=== PATIENT | male | born 1950 | race Caucasian/White ===

== ENCOUNTER 2016-09-13 13:31 | Emergency (ER) | payer OTHER, MEDICARE, BC ==
[~2016-09-13 13:31] MED LIST: ALLO100T PO; DICY1TAB26 PO; EMPA1TAB7 PO; GLYB1TAB51 PO; LOMO PO; MECL25 PO; METF850T PO; PANT20 PO; POTA1080 PO; PRIN10TA PO; TAMS0.4C67 PO; ZOCO40TA PO
[2016-09-13 13:36] VITALS: BP 142/79; PULSE 94; RESP 16; TEMP 97.9; O2SAT 99
[2016-09-13] MEDS ORDERED: LISI10TA3 PO (13:42)
[2016-09-13] MEDS ORDERED: METF850T PO (13:42)
[2016-09-13] MEDS ORDERED: ZOCO40TA PO (13:42)
[2016-09-13] MEDS ORDERED: GLYB5TAB3 PO (13:42)
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
== END 2016-09-13 15:21 | disposition home or self-care (01) ==
LOC: PHEFT 13:31
DX: S20.211A Contusion of right front wall of thorax, initial encounter (principal); M25.531 Pain in right wrist; V49.40XA Driver injured in collision with unspecified motor vehicles in traffic accident, initial encounter
CPT/HCPCS: 71101; 73110; 94150; 99284; L3908

== ENCOUNTER 2017-02-26 16:15 | Inpatient (IN) | payer MEDICARE, BC ==
[~2017-02-26] VITALS: Ht 177.8 cm; Wt 104.5 kg
[~2017-02-26 16:15] MED LIST changes: -ALLO100T PO; -DICY1TAB26 PO; -EMPA1TAB7 PO; -GLYB1TAB51 PO; +GLYB5TAB3 PO; +LISI10TA3 PO; -LOMO PO; -MECL25 PO; -PANT20 PO; -POTA1080 PO; -PRIN10TA PO; -TAMS0.4C67 PO
[2017-03-09] MEDS ORDERED: TAMS0.4C4 PO (09:51)
[2017-03-09] MEDS ORDERED: PANT20TA2 PO (09:51)
[2017-03-09] MEDS ORDERED: RANI150C PO (10:45)
[2017-03-09] MEDS ORDERED: GLYB5TAB3 PO (10:45)
[2017-03-09] MEDS ORDERED: ALLO100T PO (10:45)
[2017-03-09] MEDS ORDERED: EMPA1TAB5 PO (10:45)
[2017-03-09] MEDS ORDERED: POTA1080 PO (10:45)
[2017-03-09] MEDS ORDERED: METF500T PO (10:45)
[2017-03-09] MEDS ORDERED: LISI2.5T3 PO (10:45)
[2017-03-09] MEDS ORDERED: TRAM50TA PO (10:45)
[2017-03-09] MEDS ORDERED: TYLE325T PO (10:46)
[2017-03-19] MEDS ORDERED: CHLORHEXIDINE GLUCONATE 2 % 1 PACK (2 CLOTHS) TOPICAL PRN (08:15)
[2017-03-19] MEDS ORDERED: CHLORHEXIDINE GLUCONATE 4% SOLN 120 ML BTL TOPICAL SCH (09:00)
[2017-03-19] MEDS ORDERED: SODIUM CHLORID 0.9% 500 ML IV PRN (09:00)
[2017-03-19] MEDS ORDERED: METOPROLOL TARTRATE 25 MG TAB PO PRN (09:00)
[2017-03-19] MEDS ORDERED: POVIDONE IODINE 5% (ANTISEPSIS KIT) 4 APPLICATIONS EACH NARE PRN (09:00)
[2017-03-19] MEDS ORDERED: LACTATED RINGER'S 1000 ML IV PRN (09:00)
[2017-03-19] MEDS ORDERED: INSULIN HUMAN REGULAR 1,000 UNITS/10 ML VIAL SQ PRN (09:00)
[2017-03-19] MEDS ORDERED: EXPAREL PERI-ARTICULAR INJECTION (TOTAL VOL. 100 ML) P-ARTICULR ONE ×2 (09:00)
[2017-03-19] MEDS ORDERED: ceFAZolin 2 GM PREMIX 50 ML IV SCH (09:00)
[2017-03-19] MEDS ORDERED: TRANEXAMIC ACID IV ONE ×2 (09:30→12:30)
[2017-03-19] MEDS ORDERED: SODIUM CHLORIDE 0.9% IV ONE ×2 (09:30→12:30)
[2017-03-19] MEDS ORDERED: Post-op Orders (for Pharmacy) MISC XX ONE (10:00)
[2017-03-19] MEDS ORDERED: SODIUM CHLORIDE 0.9% FLUSH 5 ML FLUSH IVF PRN (10:00)
[2017-03-19] MEDS ORDERED: MAGNESIUM HYDROXIDE SUSP 30 ML CUP PO PRN (10:00)
[2017-03-19] MEDS ORDERED: TRANEXAMIC ACID INJ 0 MG in SODIUM CHLORIDE 0.9% INJ 100 ML IV SCH (10:00)
[2017-03-19] MEDS ORDERED: MORPHINE SULFATE 4 MG/ML INJ IV PUSH PRN (10:00)
[2017-03-19] MEDS ORDERED: PROMETHAZINE INJ 25 MG/ML VIAL IM PRN (10:00)
[2017-03-19] MEDS ORDERED: ACETAMINOPHEN/HYDROcodone 325 MG/7.5 MG TAB PO PRN (10:00)
[2017-03-19] MEDS ORDERED: DEXAMETHASONE SOD PHOS 4 MG/ML VIAL ONE (10:06)
[2017-03-19] MEDS ORDERED: FAMOTIDINE 20 MG/2 ML VIAL ONE (10:06)
[2017-03-19] MEDS ORDERED: MIDAZOLAM HCL 2 MG/2 ML VIAL ONE (10:06)
[2017-03-19] MEDS ORDERED: ACETAMINOPHEN 1000 MG/100 ML VIAL IV ONE (10:11)
[2017-03-19] MEDS ORDERED: fentaNYL CITRATE 250 MCG/5 ML AMP ONE (10:11)
[2017-03-19] MEDS ORDERED: APREPITANT 40 MG CAP ONE (10:12)
[2017-03-19] MEDS ORDERED: GENTAMICIN SULFATE 80 MG/2 ML VIAL ONE (10:13)
[2017-03-19] MEDS ORDERED: LACTATED RINGER'S 1000 ML INJ 1,000 ML IV ONE (12:00)
[2017-03-19] MEDS ORDERED: PHENYLEPH/NS 1000 MCG/10 ML SYR IV ONE (12:00)
[2017-03-19] MEDS ORDERED: PROPOFOL 200 MG/20 ML AMP IV ONE (12:00)
[2017-03-19] MEDS ORDERED: NEOSTIGMINE 3 MG/3 ML SYR IV ONE (12:00)
[2017-03-19] MEDS: LACTATED RINGER'S 1000 ML INJ 1,000 ML IV SCH ×2 (12:05→22:25)
[2017-03-19] MEDS ORDERED: glyBURIDE 5 MG TAB PO PRN (12:45)
--- NOTE | 2017-03-19 12:52 | HHI.FF ---
Face to Face Verification Diagnosis: (1) Status post total left knee replacement Physical Therapy Gait training Knee: Total knee, Protocol: Left, Gait training, Full weight bearing Left LE Weight Bearing: WB as tolerated Left LE Range of Motion: Active ROM Additional Instructions AROM, AAROM, PROM, PRE. ROM goal is 0 to 135 degrees. ROM in the OR was 0 to 145 degrees. Nursing Nursing: Dressing changes Dressing Changes: Daily dressing change, Coverderm/Primapore Additional Instructions Remove steristrips on postop day 14. I have seen patient Brandon Whitfield on 03/19/17. My clinical findings support the need for the requested home health care services because: Ltd mobility - disease progression Limited ability to care for self High risk of falls I certify that my clinical findings support that this patient is homebound because: Post-op weakness Unsteady gait/balance Unsafe to leave home unassisted Tessa Eugene MD (Charles) Mar 19, 2017 12:52
[2017-03-19] MEDS ORDERED: DO NOT ADM ANY ANTICOAGULANT DRUGS PRN (13:11)
--- NOTE | 2017-03-19 14:32 | MP ---
cc: Lilian WAY. DATE OF SURGERY 03/19/2017 PREOPERATIVE DIAGNOSIS Primary osteoarthritis left knee. POSTOPERATIVE DIAGNOSIS Primary osteoarthritis left knee. OPERATION PERFORMED Left total knee arthroplasty with Redway Triathlon prosthesis (uncemented). SURGEON Tessa Way MD ELECTRICAL LINE SPLICER NERI Hugo ANESTHESIA General endotracheal with supplemental adductor canal block and local. INDICATIONS AND FINDINGS This 66-year-old man has had left knee pain for several years. He has had previous arthroscopic surgery in the [place]. More recently he has found that he has had to limit his weightbearing and has had to limit his walk walking to a maximum of one hour with intermittent stops because of the pain. Symptoms included medial and lateral pain, giving-way locking, crepitation and difficulty standing from a seated position and vice versa and difficulty ascending and descending stairs. Treatment has included arthroscopic analgesics, anti-inflammatories, exercise and ambulatory aids. This has not helped him. Imaging studies show severe osteoarthritis with loss of articular cartilage to [id number] and the medial compartment especially with medial and patellofemoral osteophytes, lateral osteophytes and subchondral sclerosis in the medial compartment. Operative findings are consistent with the radiographic findings. There is loss of articular cartilage to exposed subchondral bone in the medial and patellofemoral compartments. PROSTHESIS USED Redway Triathlon prosthesis. The femur was a size 6, right cruciate-retaining Press-Fit. The tibia was a size 6 Tritanium baseplate. The spacer was a size 6 x 9-mm cruciate-retaining of X3 polyethylene. The patella was a Tritanium backed asymmetric patella, size 38. PROCEDURE The patient was brought to the clean-air operating suite and a general endotracheal anesthetic was administered. He was placed in a supine position on the operating table. He received an adductor canal block as well. Prophylactic antibiotics in the form of Ancef was provided at the appropriate time preoperatively according to protocols. Tranexamic acid was also administered. He was placed in a supine position on the operating table with a small bolster under the left hip and a pneumatic tourniquet about the left thigh. Tourniquet was not inflated during the procedure. The left leg was then prepped with alcohol, Hibiclens and Chloraprep and draped in the usual manner with the knee draped free. Appropriate time-out procedure was carried out. Local anesthetic was administered into the incision site prior to making incision. The incision was then made from about three fingerbreadths above the superior and medial pole of the patella down to the tibial tubercle. The incision was deepened through subcutaneous tissues to the retinacular structures which were exposed medially and laterally. A medial retinacular incision was made from the superior medial pole of patella down to the tibial tubercle and up into the quadriceps tendon splitting it longitudinally in the medial one-third. The patella was reflected. Medial and lateral dissection was carried out. The posterior surface of the patella was excised with the oscillating saw taking care to prevent injury to the extensor mechanism. The fenestration were made in the distal femur and proximal tibia for intermedullary referencing guides. Distal femoral cutting block was positioned in place with the jig for a 5-degree, 8-mm cut. Cutting block was stabilized with pins. The jig was removed. The distal femoral cut was completed with the oscillating saw. The sizing guide was positioned along Whitesides line in the epicondylar axis. This was stabilized with pins. The size was determined to be a size 6. The four-in-one cutting block was positioned in place and stabilized with pins. Anterior and posterior cuts were made followed by posterior and anterior chamfer cuts. Osteophytes were trimmed from the femur. Medial and lateral meniscectomies were completed. The tibial cutting guide was then positioned in place and stabilized with pins for rotation followed by verifying depth of cut with the stylus and stabilized with pins. This was then adjusted accordingly. The proximal tibial cut was completed with the oscillating saw. After completion of the tibial cut, the spacer block verified appropriate depth of cut. The tibial trial was appropriate for a size 6. The 9-mm spacer was inserted. The femoral component was inserted. With a trial prosthesis in place, the tibial component was stabilized with pins. The alignment was checked and appeared to be excellent. The patella drill holes were then made through the patella drill guide. A size 38 trial patella was positioned in place. The knee was taken through a range of motion which was easily 0 degrees extension and 145 degrees of flexion with excellent stability throughout the entire range of motion. Femoral drill holes were made. The trial patella and femur were removed. The tibial spacer was removed. The tibial punch was impacted after placement of bone grafts into fenestrations. The drill guide was positioned in place and drill holes made. After removal of the trial prosthesis, Exparel was injected throughout the knee. The tibial baseplate was then impacted into place and seated appropriately. At 9-mm spacer was inserted. The femoral component was impacted into the cleaned distal femur after irrigating with pulse lavage. When this was seated, the patella prosthesis was seated onto the posterior surface of the patella using the patella vice. Drains were brought out the superior and lateral aspects of the suprapatellar pouch. The remainder of the Exparel was injected throughout the knee. The wound was then closed with 0 Vicryl interrupted [id number] sutures for the retinacular and capsular structures, 2-0 Vicryl interrupted simple sutures with buried knots, with the subcutaneous tissues and 4-0 Monocryl continuous subcuticular closure for the skin. The wound was dressed with Steri-Strips followed by dry dressing. Sterile Sof-Rol, cooling pad, further sterile Sof-Rol and Guy bandages from the base of toe to midthigh. The patient was transferred to the recovery room in satisfactory condition having tolerated the procedure well. COUNTS Correct. SPECIMENS None. ESTIMATED BLOOD LOSS 300 mL. MD VALENCIA Rios/BHARAT /12:59 PM /2:05 PM
[2017-03-19] MEDS: KETOROLAC TROMETHAMINE 30 MG/ML (IVP) VIAL IVP SCH ×2 (15:00→21:33)
--- NOTE | 2017-03-19 15:25 | RADRPT ---
EXAM DATE/TIME: 03/19/2017 14:48 [facility] COMPARISON: No previous studies available for comparison. INDICATIONS : Post op left knee MEDICAL HISTORY : None. SURGICAL HISTORY : None. ENCOUNTER: Initial ACUITY: 1 day PAIN SCORE: 5/10 LOCATION: Left knee FINDINGS: Two view examination of the left knee demonstrates no evidence of fracture or dislocation. Left knee arthroplasty. Surgical drain in place. Postsurgical changes. CONCLUSION: Left knee arthroplasty. Juan Chowdhury MD on March 19, 2017 at 15:21 Board Certified Radiologist. This report was verified electronically.
[2017-03-19] MEDS ORDERED: *morphine SULFATE 8 MG/ML PERIprocedure ONLY ONE (15:47)
--- NOTE | 2017-03-19 15:52 | PD.CONS ---
HPI Service [facility] Consult Requested By Primary Care Physician Olamide Luna MD Diagnoses: History of Present Illness Mr. Whitfield is a 66-year-old male. He is admitted for left total knee arthroplasty. He is seen postop and is lethargic. Of note he is tachycardic. Latest hemoglobin level was greater than 14 and was obtained proximally 10 days ago. Patient has a past medical history of diabetes mellitus type 2, chronic kidney disease, hypertension, hyperlipidemia, near goal bowel syndrome. She has no complaints of nausea or pain when seen. No other medical conditions reported. Review of Systems Constitutional: DENIES: Fatigue, Fever, Dizziness Eyes: DENIES: Blurred vision, Diplopia, Vision loss Ears, nose, mouth, throat: DENIES: Hearing loss, Vertigo Respiratory: DENIES: Cough, Hemoptysis, Sputum production, Shortness of breath Cardiovascular: DENIES: Chest pain, Syncope, Orthopnea Gastrointestinal: DENIES: Abdominal pain, Black stools, Bloody stools Genitourinary: DENIES: Sexual dysfunction, Urinary frequency Musculoskeletal: COMPLAINS OF: Joint pain Integumentary: DENIES: Abnormal pigmentation, Nail changes Hematologic/lymphatic: DENIES: Bruising Immunologic/allergic: DENIES: Eczema Neurologic: DENIES: Abnormal gait, Headache, Seizures Psychiatric: DENIES: Anxiety, Confusion Past Family Social History Allergies: Coded Allergies: ondansetron (Unverified Allergy, Severe, Hives, 03/13/17) ciprofloxacin (Unverified Allergy, Intermediate, Nausea/Vomiting, 03/13/17) Past Medical History Diabetes mellitus type 2 Chronic kidney disease stage III Hypertension Hyperlipidemia Irritable bowel syndrome Past Surgical History Tonsillectomy Appendectomy History of shoulder surgery History bilateral knee surgery Reported Medications Reported Meds & Active Scripts Active Reported Tylenol (Acetaminophen) 325 Mg Tab 325 Mg PO Q4H PRN Tramadol (Tramadol HCl) 50 Mg Tab 50 Mg PO Q4H PRN Lisinopril 2.5 Mg Tab 2.5 Mg PO HS Glyburide 5 Mg Tab 5 Mg PO DIRECTED PRN IF BS ELEVATED TAKES DOSE AT SUPPER AND BEDTIME Ranitidine (Ranitidine HCl) 150 Mg Cap 150 Mg PO DAILY AT SUPPER Metformin (Metformin HCl) 500 Mg Tab 500 Mg PO BID With meals Allopurinol 100 Mg Tab 100 Mg PO DAILY Glyxambi (Empagliflozin-Linagliptin) 25-5 Mg Tab 1 Tab PO DAILY Potassium Citrate ER 1,080 Mg Tab 1 Tab PO BID Tamsulosin (Tamsulosin HCl) 0.4 Mg Cap 0.4 Mg PO BID Pantoprazole (Pantoprazole Sodium) 20 Mg Tab 20 Mg PO DAILY Zocor (Simvastatin) 40 Mg Tab 40 Mg PO DAILY Active Ordered Medications Administered Medications Medications (Trade) Dose Ordered Sig/Kiki Route PRN Reason Start Time Stop Time Status Last Admin Dose Admin Lactated Ringer's 1,000 ml @ 30 mls/hr Q24H PRN IV SEE LABEL COMMENTS 03/19/17 09:00 03/22/17 08:59 03/19/17 08:25 Povidone Iodine (Betadine 5% Antisepsis Kit) 1 applic PHYSICIAN ASSISTANT PSYCHIATRY PRN EACH NARE SEE LABEL COMMENTS 03/19/17 09:00 03/22/17 08:59 03/19/17 08:30 Cefazolin Sodium/ Dextrose 50 ml @ 100 mls/hr PHYSICIAN ASSISTANT PSYCHIATRY IV 03/19/17 09:00 03/22/17 08:59 03/19/17 10:41 Lactated Ringer's 1,000 ml @ 80 mls/hr [id number] IV 03/19/17 09:55 03/19/17 12:05 Family History Diabetes mellitus type 2 and history of lung cancer in his father. Patient cannot recall any positive medical history in his mother. Social History No history of smoking No history of alcohol abuse No history of drug abuse Physical Exam Vital Signs Vital Signs Date Time Temp Pulse Resp B/P (MAP) Pulse Ox O2 Delivery O2 Flow Rate FiO2 03/19/17 08:37 98.1 102 20 148/84 (105) 99 Physical Exam GENERAL: This is a well-nourished, well-developed patient, in no apparent distress. SKIN: No rashes, ecchymoses or lesions. Cool and dry. HEAD: Atraumatic. Normocephalic. No temporal or scalp tenderness. EYES: Pupils equal round and reactive. Extraocular motions intact. No scleral icterus. No injection or drainage. ENT: Nose without bleeding, purulent drainage or septal hematoma. Throat without erythema, tonsillar hypertrophy or exudate. Uvula midline. Airway patent. NECK: Trachea midline. No JVD or lymphadenopathy. Supple, nontender, no meningeal signs. CARDIOVASCULAR: Regular rate and rhythm without murmurs, gallops, or rubs. RESPIRATORY: Clear to auscultation. Breath sounds equal bilaterally. No wheezes , rales, or rhonchi. GASTROINTESTINAL: Abdomen soft, non-tender, nondistended. No hepato-splenomegaly , or palpable masses. No guarding. MUSCULOSKELETAL: Extremities without clubbing, cyanosis, or edema. No joint tenderness, effusion, or edema noted. No calf tenderness. Negative Homans sign bilaterally. NEUROLOGICAL: Awake and alert. Cranial nerves II through XII intact. Motor and sensory grossly within normal limits. Five out of 5 muscle strength in all muscle groups. Normal speech. Assessment and Plan Problem List: (1) Diabetes mellitus type 2 in nonobese ICD Code: E11.9 - Type 2 diabetes mellitus without complications (2) Chronic kidney disease, stage III (moderate) ICD Code: N18.3 - Chronic kidney disease, stage 3 (moderate) (3) Hypertension ICD Code: I10 - Essential (primary) hypertension (4) Hyperlipidemia ICD Code: E78.5 - Hyperlipidemia, unspecified (5) Irritable bowel syndrome ICD Code: K58.9 - Irritable bowel syndrome without diarrhea (6) Primary osteoarthritis of left knee ICD Code: M17.12 - Unilateral primary osteoarthritis, left knee (7) Status post total left knee replacement ICD Code: Z96.652 - Presence of left artificial knee joint Assessment and Plan Assessment and plan 66-year-old male status post left total knee arthroplasty. Status post left total knee arthroplasty Osteoarthritis Postop wound care Plan to start PT Orthopedic surgeons following As needed pain treatments Tachycardia Check H&H Follow on telemetry Diabetes mellitus type 2 Follow blood sugars Insulin sliding scale Diabetic diet Chronic kidney disease stage III Follow renal function Hypertension No need to resume blood pressure medicines yet Monitor blood pressures Resume baseline treatments when hypertension occurs Hyperlipidemia Resume baseline treatment Follows in outpatient Irritable bowel syndrome No exacerbation Follow clinically DVT Prophylaxis Per orthopedic recommendations Salas Ruiz MD Mar 19, 2017 15:52
[2017-03-19] MEDS ORDERED: DEXTROSE 50% IN WATER 50 ML VIAL(D50) IV PRN (16:00)
[2017-03-19] MEDS ORDERED: GLUCAGON 1 MG/ML VIAL OTHER PRN (16:00)
[2017-03-19 16:29] LABS: HEMATOCRIT 40.5 % (39.0-51.0); REVIEW FLAG FINAL
[2017-03-19] MEDS ORDERED: FAMOTIDINE 20 MG TAB PO SCH (18:00)
[2017-03-19 20:50] VITALS: BP 111/57; PULSE 108; RESP 18; TEMP 96.6; O2SAT 97
[2017-03-19] MEDS ORDERED: ZOLPIDEM TARTRATE 5 MG TAB PO PRN (21:00)
[2017-03-19] MEDS ORDERED: PILL SPLITTER OTHER PRN (21:00)
[2017-03-19] MEDS: SODIUM CHLORIDE 0.9% FLUSH 5 ML FLUSH IVF SCH (21:00)
[2017-03-19] MEDS ORDERED: LISINOPRIL 5 MG TAB PO SCH (21:00)
[2017-03-19] MEDS ORDERED: POTASSIUM CITRATE PO SCH (21:00)
[2017-03-19] MEDS: TAMSULOSIN HCL 0.4 MG CAP PO SCH (21:33)
[2017-03-19] MEDS: metFORMIN HCL 500 MG TAB PO SCH (23:12)
[2017-03-19] MEDS ORDERED: INSULIN ASPART 1,000 UNITS/10 ML VIAL SQ ONE (23:15)
[2017-03-20 00:34] VITALS: BP 115/65; PULSE 110; RESP 18; TEMP 97.6; O2SAT 98
[2017-03-20 04:50] VITALS: BP 116/65; PULSE 103; RESP 18; TEMP 98; O2SAT 100
[2017-03-20] MEDS: KETOROLAC TROMETHAMINE 30 MG/ML (IVP) VIAL IVP SCH ×3 (05:51→13:13)
[2017-03-20] MEDS: ACETAMINOPHEN/HYDROcodone 325 MG/7.5 MG TAB PO PRN ×2 (06:05→15:58)
[2017-03-20 07:44] LABS: HEMATOCRIT 35.3 % (39.0-51.0); REVIEW FLAG FINAL
--- NOTE | 2017-03-20 07:55 | PD.ORT.PN ---
Subjective Post Op Day #: 1 Subjective Remarks He was unable to walk yesterday because he did not eat. He feels ready to walk and do PT today. Range of Motion -15 to 82 degrees. Distance Walked Stood only with PT. Objective Vitals Vital Signs Date Time Temp Pulse Resp B/P (MAP) Pulse Ox O2 Delivery O2 Flow Rate FiO2 03/20/17 04:50 98.0 103 18 116/65 (82) 100 03/20/17 00:34 97.6 110 18 115/65 (82) 98 03/19/17 20:50 96.6 108 18 111/57 (75) 97 03/19/17 19:45 110 14 141/69 (93) 97 Nasal Cannula 2 03/19/17 19:38 2 Nasal Cannula 03/19/17 19:30 110 14 149/67 (94) 97 Nasal Cannula 2 03/19/17 18:30 111 14 150/71 (97) 94 Nasal Cannula 2 03/19/17 17:30 113 14 125/71 (89) 95 Nasal Cannula 2 03/19/17 16:30 115 14 127/70 (89) 96 Nasal Cannula 2 03/19/17 15:30 115 14 120/62 (81) 96 Nasal Cannula 2 03/19/17 14:30 109 14 132/71 (91) 96 Nasal Cannula 2 03/19/17 14:15 112 14 139/69 (92) 96 Nasal Cannula 2 03/19/17 14:00 109 14 139/62 (87) 96 Nasal Cannula 2 03/19/17 13:45 108 14 149/72 (97) 99 Nasal Cannula 2 03/19/17 13:30 103 14 134/63 (86) 95 Nasal Cannula 2 03/19/17 13:15 97.4 97 14 133/68 (89) 97 Simple Mask 8 03/19/17 08:37 98.1 102 20 148/84 (105) 99 I/O 03/19/17 03/19/17 03/19/17 03/20/17 03/20/17 03/20/17 07:00 15:00 23:00 07:00 15:00 23:00 Intake Total 1457 ml 790 ml 1710 ml Output Total 3250 ml 1705 ml 660 ml Balance -1793 ml -915 ml 1050 ml Intake Oral 240 ml 240 ml IV Total 1357 ml 550 ml 1470 ml Other 100 ml Output Urine Total 1475 ml 600 ml Drainage Total 230 ml 60 ml Estimated Blood Loss 250 ml Other 3000 ml # Bowel Movements 0 0 Result Diagram: 03/20/17 0730 Imaging X-ray is OK. Objective Remarks He is resting comfortably, supine in bed in the CPM. The dressing is dry and intact. The neurovascular status is intact. Assessment & Plan Ortho Post Op Day #: 1 Problem List: (1) Status post total left knee replacement ICD Codes: Z96.652 - Presence of left artificial knee joint Status: Acute Plan: Continue postop care and PT. Assessment and Plan Condition: Good. Orthopaedically stable. DVT prophylaxis: TEDs, ASA, sequentials. Discharge plans: Home with [facility]. Has appointment. Rx: [place] 7.5/325 Tessa Eugene MD (Charles) Mar 20, 2017 07:55
[2017-03-20 08:00] VITALS: BP 101/64; PULSE 96; RESP 20; TEMP 98.2; O2SAT 98
[2017-03-20] MEDS ORDERED: HYDR-3580 PO (08:28)
[2017-03-20] MEDS ORDERED: ASPI-99 PO (08:28)
[2017-03-20] MEDS: metFORMIN HCL 500 MG TAB PO SCH (08:52)
[2017-03-20] MEDS: TAMSULOSIN HCL 0.4 MG CAP PO SCH (08:52)
[2017-03-20] MEDS: SODIUM CHLORIDE 0.9% FLUSH 5 ML FLUSH IVF SCH (08:53)
[2017-03-20] MEDS ORDERED: PRAVASTATIN SOD 80 MG TAB PO SCH (09:00)
[2017-03-20] MEDS ORDERED: LINAGLIPTIN PO SCH (09:00)
[2017-03-20] MEDS ORDERED: ALLOPURINOL 100 MG TAB PO SCH (09:00)
[2017-03-20] MEDS ORDERED: PANTOPRAZOLE SOD 20 MG DELAYED RELEASE TAB PO SCH (09:00)
[2017-03-20] MEDS ORDERED: EMPAGLIFLOZIN PO SCH (09:00)
--- NOTE | 2017-03-20 10:13 | HHI.PR ---
Subjective Remarks Doing well postop. No further tachycardia. Hemoglobin is 11.6 which is stable postop. Patient is medically stable for discharge when orthopedic clears patient for discharge. Objective Vital Signs Date Time Temp Pulse Resp B/P (MAP) Pulse Ox O2 Delivery O2 Flow Rate FiO2 03/20/17 08:00 98.2 96 20 101/64 (76) 98 03/20/17 07:10 16 03/20/17 07:10 16 03/20/17 04:50 98.0 103 18 116/65 (82) 100 03/20/17 00:34 97.6 110 18 115/65 (82) 98 03/19/17 20:50 96.6 108 18 111/57 (75) 97 03/19/17 19:45 110 14 141/69 (93) 97 Nasal Cannula 2 03/19/17 19:38 2 Nasal Cannula 03/19/17 19:30 110 14 149/67 (94) 97 Nasal Cannula 2 03/19/17 18:30 111 14 150/71 (97) 94 Nasal Cannula 2 03/19/17 17:30 113 14 125/71 (89) 95 Nasal Cannula 2 03/19/17 16:30 115 14 127/70 (89) 96 Nasal Cannula 2 03/19/17 15:30 115 14 120/62 (81) 96 Nasal Cannula 2 03/19/17 14:30 109 14 132/71 (91) 96 Nasal Cannula 2 03/19/17 14:15 112 14 139/69 (92) 96 Nasal Cannula 2 03/19/17 14:00 109 14 139/62 (87) 96 Nasal Cannula 2 03/19/17 13:45 108 14 149/72 (97) 99 Nasal Cannula 2 03/19/17 13:30 103 14 134/63 (86) 95 Nasal Cannula 2 03/19/17 13:15 97.4 97 14 133/68 (89) 97 Simple Mask 8 I/O 03/19/17 03/19/17 03/19/17 03/20/17 03/20/17 03/20/17 07:00 15:00 23:00 07:00 15:00 23:00 Intake Total 1457 ml 790 ml 1710 ml Output Total 3250 ml 1705 ml 660 ml Balance -1793 ml -915 ml 1050 ml Intake Oral 240 ml 240 ml IV Total 1357 ml 550 ml 1470 ml Other 100 ml Output Urine Total 1475 ml 600 ml Drainage Total 230 ml 60 ml Estimated Blood Loss 250 ml Other 3000 ml # Bowel Movements 0 0 Result Diagram: 03/20/17 0730 Objective Remarks GENERAL: NAD, A&Ox3 HEAD: Normocephalic. NECK: Supple, trachea midline. No lymphadenopathy. EYES: No scleral icterus. No injection or drainage. CARDIOVASCULAR: Regular rate and rhythm without murmurs, gallops, or rubs. RESPIRATORY: Breath sounds equal bilaterally. No accessory muscle use. GASTROINTESTINAL: Abdomen soft, non-tender, nondistended. MUSCULOSKELETAL: No cyanosis, or edema. Left leg bandage. SKIN: Warm and dry. NEURO: No focal neurological deficitis. A/P Problem List: (1) Primary osteoarthritis of left knee ICD Code: M17.12 - Unilateral primary osteoarthritis, left knee (2) Status post total left knee replacement ICD Code: Z96.652 - Presence of left artificial knee joint Status: Acute Assessment and Plan Assessment and plan 66-year-old male status post left total knee arthroplasty. Medically stable for discharge to home when orthopedic surgeons clear patient for discharge. Status post left total knee arthroplasty Osteoarthritis Doing well postop No significant postop anemia Postop wound care Continue PT Orthopedic surgeon follow up as an outpatient As needed pain treatments Medically stable for discharge Tachycardia Resolved Diabetes mellitus type 2 Resume baseline outpatient treatment Follow blood sugars Insulin sliding scale Diabetic diet Chronic kidney disease stage III Follow renal function as an outpatient Hypertension Resume baseline treatments Currently controlled Hyperlipidemia Resume baseline treatment Follows in outpatient Irritable bowel syndrome No exacerbation DVT Prophylaxis Per orthopedic recommendations Salas Ruiz MD Mar 20, 2017 10:13
[2017-03-20] MEDS: LACTATED RINGER'S 1000 ML INJ 1,000 ML IV SCH (10:55)
[2017-03-20 10:59] VITALS: O2SAT 96
[2017-03-20 11:00] VITALS: BP 122/61; PULSE 93; RESP 20; TEMP 95.8; O2SAT 93
[2017-03-20] MEDS ORDERED: ASPIRIN EC 81 MG TABEC PO SCH (12:00)
[2017-03-20 16:35] VITALS: BP 128/71; PULSE 108; RESP 20; TEMP 96.2; O2SAT 97
[2017-03-20] MEDS ORDERED: DOCUSATE SODIUM 100 MG CAP PO SCH (21:00)
== END 2017-03-20 17:14 | disposition home health service (06) | DRG 470 ==
LOC: HSDI 03-19 07:35 → N06B 03-19 20:09
PROVIDERS: ADMIT Orthopaedic Surgery; ATTEND Orthopaedic Surgery
PROC: 3E0T3CZ (ICD-10-PCS; 2017-03-19)
PROC: 0SRD0JA Replacement of Left Knee Joint with Synthetic Substitute, Uncemented, Open Approach (ICD-10-PCS; principal; 2017-03-19 10:17)
DX: M17.12 Unilateral primary osteoarthritis, left knee (principal); E11.22 Type 2 diabetes mellitus with diabetic chronic kidney disease; N18.3 Chronic kidney disease, stage 3 (moderate); R00.0 Tachycardia, unspecified; I12.9 Hypertensive chronic kidney disease with stage 1 through stage 4 chronic kidney disease, or unspecified chronic kidney disease; E78.5 Hyperlipidemia, unspecified; K58.9 Irritable bowel syndrome, unspecified
CPT/HCPCS: 73560; 82948; 85014; 85018; 86850; 86900; 86901; 94150; C1776; C9290; J0131; J0690; J1100; J1580; J1815; J1885; J2250; J2270; J2370; J2710; J3010; J7120; J8501

== ENCOUNTER → 2017-03-09 | Outpatient (CLI) | payer MEDICARE, BC ==
[~2017-03-09] MED LIST changes: +ALLO100T PO; +ASPI-99 PO; +EMPA1TAB5 PO; +HYDR-3580 PO; +LISI2.5T3 PO; +METF500T PO; +PANT20TA2 PO; +POTA1080 PO; +RANI150C PO; +TAMS0.4C4 PO; +TRAM50TA PO; +TYLE325T PO
[2017-03-09 09:32] LABS: AUTOMATED NEUTROPHIL # 3.1 TH/MM3 (1.8-7.7); BASOPHIL % 0.7 % (0.0-2.0); EOSINOPHIL # 0.3 TH/MM3 (0-0.4); HEMATOCRIT 43.8 % (39.0-51.0); HEMO FLAGS DIFF FINAL; LYMPH % 36.4 % (9.0-44.0); LYMPHOCYTE # 2.2 TH/MM3 (1.0-4.8); MEAN CELL VOLUME 89.7 FL (80.0-100.0); MEAN CORPUSCULAR HEMOGLOBIN 29.9 PG (27.0-34.0); MEAN CORPUSCULAR HGB CONC 33.4 % (32.0-36.0); NEUT % 49.9 % (16.0-70.0); PLATELET COUNT 227 TH/MM3 (150-450); RED BLOOD COUNT 4.89 MIL/MM3 (4.50-5.90); RED CELL DISTRIBUTION WIDTH 14.9 % (11.6-17.2); WHITE BLOOD COUNT 6.1 TH/MM3 (4.0-11.0)
[2017-03-09 09:40] LABS: APTT (PATIENT) 25.7 SEC (24.3-30.1); PROTHROMBIN TIME - PATIENT 10.5 SEC (9.8-11.6)
[2017-03-09 09:55] LABS: BICARBONATE 26.4 MEQ/L (21.0-32.0); POTASSIUM 4.4 MEQ/L (3.5-5.1)
[2017-03-09 10:36] LABS: BLOOD, URINE NEG (NEG); COMMENT (UR) CULT NOT INDICATED; CULTURE IF INDICATED CULT NOT INDICATED; GLUCOSE,URINE 1000 mg/dL (NEG); HYALINE CAST, URINE 2 /lpf (RARE); KETONE, URINE NEG (NEG); MUCUS URINE FEW /lpf (OCC); NITRITE,URINE NEG (NEG); URINE COLOR YELLOW (YELLW/STRAW)
--- NOTE | 2017-03-09 17:23 | EKG ---
Date Performed: 03/09/2017 Time Performed: 09:11:28 PTAGE: 66 years EKG: Sinus rhythm WITH SINUS ARRHYTHMIA BORDERLINE LEFT AXIS DEVIATION When compared to previous tracing, sinus arrhyt hmia is new. BORDERLINE ECG PREVIOUS TRACING : 03/06/2016 06.10 DOCTOR: Henry Willingham Interpretating Date/Time 03/09/2017 17:21:40
== END ==
LOC: CPRE 08:52
PROVIDERS: ATTEND Orthopaedic Surgery
DX: Z01.812 Encounter for preprocedural laboratory examination (principal); Z01.810 Encounter for preprocedural cardiovascular examination; M79.609 Pain in unspecified limb; I10 Essential (primary) hypertension; I49.8 Other specified cardiac arrhythmias
CPT/HCPCS: 36415; 80048; 81001; 85025; 85610; 85730; 93005

== ENCOUNTER → 2017-07-13 | Outpatient (CLI) | payer MEDICARE, BC ==
[~2017-07-13] MED LIST changes: -ASPI-99 PO; +ASPI1TAB56 PO; -LISI10TA3 PO; -METF850T PO; +PROM25TA10 PO; +ULOR40TA PO
[2017-07-13 09:36] LABS: HEMATOCRIT 40.9 % (39.0-51.0); MEAN CELL VOLUME 79.2 FL (80.0-100.0); MEAN CORPUSCULAR HEMOGLOBIN 25.8 PG (27.0-34.0); MEAN CORPUSCULAR HGB CONC 32.6 % (32.0-36.0); PLATELET COUNT 256 TH/MM3 (150-450); RED BLOOD COUNT 5.16 MIL/MM3 (4.50-5.90); RED CELL DISTRIBUTION WIDTH 16.4 % (11.6-17.2); REVIEW FLAG FINAL; WHITE BLOOD COUNT 5.9 TH/MM3 (4.0-11.0)
[2017-07-13 09:41] LABS: BLOOD, URINE NEG (NEG); COMMENT (UR) CULT NOT INDICATED; CULTURE IF INDICATED CULT NOT INDICATED; GLUCOSE,URINE 1000 mg/dL (NEG); KETONE, URINE NEG (NEG); MUCUS URINE FEW /lpf (OCC); NITRITE,URINE NEG (NEG); PH, URINE 6.5 (5.0-8.5); URINE COLOR LIGHT-YELLOW (YELLW/STRAW)
[2017-07-13 09:44] LABS: APTT (PATIENT) 24.3 SEC (24.3-30.1)
[2017-07-13 09:59] LABS: BICARBONATE 25.4 MEQ/L (21.0-32.0); POTASSIUM 4.5 MEQ/L (3.5-5.1)
== END ==
LOC: CPRE 08:44
PROVIDERS: ATTEND Orthopaedic Surgery
DX: Z01.812 Encounter for preprocedural laboratory examination (principal); M79.609 Pain in unspecified limb; M17.11 Unilateral primary osteoarthritis, right knee; I10 Essential (primary) hypertension; T84.82XD Fibrosis due to internal orthopedic prosthetic devices, implants and grafts, subsequent encounter
CPT/HCPCS: 36415; 80048; 81001; 85027; 85610; 85730

== ENCOUNTER 2017-08-06 07:35 | Inpatient (IN) | payer MEDICARE, BC ==
[~2017-08-06] VITALS: Ht 177.8 cm; Wt 79.1 kg
[~2017-08-06 07:35] MED LIST changes: -ALLO100T PO; -ASPI1TAB56 PO
[2017-08-06] MEDS ORDERED: LACTATED RINGER'S 1000 ML IV PRN (08:15)
[2017-08-06] MEDS ORDERED: CHLORHEXIDINE GLUCONATE 4% SOLN 120 ML BTL TOPICAL SCH (08:15)
[2017-08-06] MEDS ORDERED: POVIDONE IODINE 5% (ANTISEPSIS KIT) 4 APPLICATIONS EACH NARE PRN (08:15)
[2017-08-06] MEDS ORDERED: CHLORHEXIDINE GLUCONATE 2 % 1 PACK (2 CLOTHS) TOPICAL PRN (08:15)
[2017-08-06] MEDS ORDERED: ceFAZolin 2 GM PREMIX 50 ML IV SCH (08:15)
[2017-08-06] MEDS ORDERED: METOPROLOL TARTRATE 25 MG TAB PO PRN (08:15)
[2017-08-06] MEDS ORDERED: SODIUM CHLORID 0.9% 500 ML IV PRN (08:15)
[2017-08-06] MEDS ORDERED: ACETAMINOPHEN/HYDROcodone 325 MG/7.5 MG TAB PO PRN (09:15)
[2017-08-06] MEDS ORDERED: ZOLPIDEM TARTRATE 5 MG TAB PO PRN (09:15)
[2017-08-06] MEDS ORDERED: PROMETHAZINE INJ 25 MG/ML VIAL IM PRN (09:15)
[2017-08-06] MEDS ORDERED: TRANEXAMIC ACID INJ 0 MG in SODIUM CHLORIDE 0.9% INJ 100 ML IV SCH (09:15)
[2017-08-06] MEDS ORDERED: ECASA81 PO (09:23)
--- NOTE | 2017-08-06 09:26 | HHI.FF ---
Face to Face Verification Diagnosis: (1) Status post total right knee replacement Physical Therapy Gait training Knee: Total knee, Protocol: Right, Gait training, Full weight bearing Right LE Weight Bearing: WB as tolerated Right LE Range of Motion: Active ROM (active, active-assisted and passive range of motion. Range of motion goals are 0 extension to 135 of flexion.) Left LE Range of Motion: Passive ROM (active, active-assisted and passive range of motion. Range of motion goal is 0 extension to 120 of flexion.) Nursing Nursing: Dressing changes (to begin POSTOP day 7) Dressing Changes: Daily dressing change (to begin at postop day 7), Coverderm/ Primapore Additional Instructions Remove Steri-Strips on postop day 14. I have seen patient Brandon Whitfield on 08/06/17. My clinical findings support the need for the requested home health care services because: Ltd mobility - disease progression Limited ability to care for self I certify that my clinical findings support that this patient is homebound because: Post-op weakness Unsteady gait/balance Unsafe to leave home unassisted Tessa Eugene MD (Charles) Aug 06, 2017 09:26
[2017-08-06] MEDS ORDERED: glyBURIDE 5 MG TAB PO PRN (09:30)
[2017-08-06] MEDS ORDERED: BUPIVACAINE HCL PF 0.5% 30 ML VIAL ONE (09:40)
[2017-08-06] MEDS ORDERED: DEXAMETHASONE SOD PHOS PF 10 MG/ML VIAL ONE (09:41)
[2017-08-06] MEDS ORDERED: ACETAMINOPHEN 1000 MG/100 ML 100 ML IV ONE (09:45)
[2017-08-06] MEDS ORDERED: MIDAZOLAM HCL 2 MG/2 ML VIAL ONE (09:45)
[2017-08-06] MEDS ORDERED: FAMOTIDINE 20 MG/2 ML VIAL ONE (09:45)
[2017-08-06] MEDS ORDERED: BUPIVACAINE LIPOSOME PF 1.3% 20 ML VIAL ONE (09:47)
[2017-08-06] MEDS ORDERED: SODIUM CHLORIDE 0.9% IV SCH ×2 (10:00→13:00)
[2017-08-06] MEDS ORDERED: TRANEXAMIC ACID IV SCH ×2 (10:00→13:00)
[2017-08-06] MEDS ORDERED: EXPAREL PERI-ARTICULAR INJECTION (TOTAL VOL. 100 ML) P-ARTICULR SCH ×2 (10:00)
[2017-08-06] MEDS ORDERED: GENTAMICIN SULFATE 80 MG/2 ML VIAL ONE ×2 (10:02)
[2017-08-06] MEDS ORDERED: Post-op Orders (for Pharmacy) XX ONE (10:30)
[2017-08-06] MEDS ORDERED: PROPOFOL 200 MG/20 ML AMP ONE (11:11)
[2017-08-06] MEDS: LACTATED RINGER'S 1000 ML INJ 1,000 ML IV SCH ×2 (12:00→23:39)
[2017-08-06] MEDS ORDERED: PROPOFOL 200 MG/20 ML AMP IV ONE (12:00)
[2017-08-06] MEDS ORDERED: ESMOLOL HCL 100 MG/10 ML VIAL IV ONE (12:00)
[2017-08-06] MEDS ORDERED: PHENYLEPH/NS 1000 MCG/10 ML SYR IV ONE (12:00)
[2017-08-06] MEDS ORDERED: ePHEDrine/NS 25 MG/5 ML SYRINGE IV ONE (12:00)
[2017-08-06] MEDS ORDERED: MORPHINE SULFATE 2 MG/ML INJ IV PUSH PRN (12:15)
--- NOTE | 2017-08-06 12:29 | PD.OP ---
Operative Report Date of Surgery: Aug 06, 2017 Preoperative Diagnosis: (1) Primary osteoarthritis of right knee (2) Fibrous ankylosis Fibrous ankylosis, left knee Postoperative Diagnosis: (1) Primary osteoarthritis of right knee (2) Fibrous ankylosis Fibrous ankylosis, left knee Procedure: Right total knee arthroplasty with Striker Triathlon prosthesis (uncemented) Closed manipulation left knee Anesthesia: Spinal with supplemental adductor canal block right knee and local right knee Surgeon: Wiliam Eugene M.D. Physical Security Engineer(s): Kwaku Ortega Operation and Findings: Indications and Findings: This 66-year-old man has had right knee pain since 1973 after an injury and subsequent surgery. He has progressive worsening of pain to the point that his ambulation tolerance's is under 1 mile with intermittent stops doing this 1 mile walk. He has difficulty standing from a seated position and ascending and descending stairs. He has not responded to conservative measures including nonsteroidal anti-inflammatory agents, activity modification, and ambulatory aids. Imaging studies showed severe arthritis with loss of articular cartilage and [id number] particularly in the lateral compartment with osteophytes and eburnation. The left knee has been has had a total knee arthroplasty. He has not responded to therapy and has limited range of motion. Physical findings show range of motion from 0-90 good stability. X-rays show a well-positioned total knee arthroplasty. Operative findings consistent with radiographic findings related to the left knee. There were significant osteophytes, loss of articular cartilage and bone- on-bone particularly in the lateral compartment but also on the medial compartment and changes in the patellofemoral joint. Operative findings related to the right knee showed range of motion 0 extension to 90 of flexion with good stability. After the surgery and manipulation, range of motion was 0 extension to 120 of flexion also with stability. The prosthesis used was a [place] Triathlon prosthesis. The femur was a size 6 cruciate retaining uncemented. The tibial baseplate was a size 6 Tritanium an with a 9 mm cruciate retaining X3 polyethylene spacer. The patella was a size 38 mm asymmetric Tritanium backed. The patient was brought to the clean-air operating suite. A spinal anesthetic was administered as well as a regional anesthetic by abductor canal block after an appropriate timeout procedure. The position was supine with a small bolster under the hip on the right operative side. A pneumatic tourniquet was applied to the right upper thigh. The left knee was taken through a range of motion which was 0-90. Gentle but firm closed manipulation was carried out. Range of motion was 0 extension to 120 of flexion by gravity and 125 with pressure. The right lower extremity was then prepped with alcohol, Hibiclens and ChloraPrep and draped in the usual manner with the knee draped free. An appropriate timeout procedure was carried out. An incision was made from about 3 fingerbreadths above the superior medial pole of patella down the tibial tubercle on the medial side. The incision was deepened through the subcutaneous tissue to the retinacular structures which were exposed medially and laterally. A medial retinacular incision was then made from the superior middle pole of patella down the tibial tubercle and up into the quadriceps tendon splitting it longitudinally and the medial one third. The patella was reflected. The infrapatellar fat pad was debulked. The anterior cruciate ligament was excised. Medial and lateral meniscectomies were initiated. Fenestrations were made in the distal femur and proximal tibia for intramedullary referencing guides. The distal femoral cutting guide and jig were then assembled for a 5, 8 mm cut. When this was fit position and placed cutting block was stabilized with pins. The jig was removed. The distal femoral cut was then completed with the oscillating saw. The sizing guide was then positioned in place along Whitesides line and the epicondylar axis and stabilized with pins. The femoral size was then determined as noted above. The 4-in-1 cutting block was then positioned in place. Anterior and posterior cuts were made followed by posterior and anterior chamfer cuts taking care to prevent injury to ligamentous structures. Osteophytes were then trimmed from the distal femur. A bone plug was then placed into the fenestration of the distal femur. The proximal tibia was then exposed. The medial and lateral meniscectomies were completed. The proximal tibial cutting guide was then positioned in place and stabilized with a pin for rotation. The depth of cut was then verified with a stylus off the lateral side. The cutting block was stabilized with pins. The jig was removed. The depth of cut was then verified and adjusted appropriately with the use of the spacer block. The proximal tibial cut was then made with the oscillating saw taking care to prevent injury to neurovascular and ligamentous structures. Proximal tibial bone was removed. Local anesthetic was administered with Exparel in the posterior capsule. The tibial baseplate trial was then positioned in place. After verifying the appropriate size, the base plate trial was positioned in place along with its spacer. The femoral component was then impacted into place. The alignment was checked. The tibial baseplate was then pinned in place on the tibia. Attention was directed to the patella. The patella drill guide was positioned in place for the appropriate sized patella. Patellar drilling was then carried out. The trial patella was positioned in place. The knee was taken through a range of motion which was easily 0 extension to 140. The patella trial was removed. The femoral drill holes were made. The femoral trials were removed. The tibial spacer was removed. A bone plug was placed into the proximal tibia. The tibial punch was impacted through the proximal tibial punch guide. This was all removed followed by placement of the tibial drill guide. The tibial drill holes were then made. The guide was removed. The cut ends of bone were then cleaned with pulse lavage. The tibial baseplate was then impacted into place and seated appropriately. The spacer was inserted. The the femoral component was then impacted into place and seated appropriately. The patella component was then seated with the patellar device and tightened appropriately. The knee was taken through a range of motion which was comparable to the previous range of motion with excellent stability in flexion and extension and appropriate patellofemoral tracking. The remainder of the Exparel was then injected throughout the knee as a local anesthetic. Drains were brought out the superior lateral aspect of the suprapatellar pouch. Wound closure then commenced using 0 Vicryl interrupted [id number] sutures for the capsular and fascial structures, 2-0 Vicryl interrupted simple sutures with buried knots for the subcutaneous tissues and 4- 0 Monocryl, tenuous subcuticular closure for the skin. The wound was then dressed with Steri-Strips followed by Optifoam silver impregnated dressing. Sterile soft roll with a cooling pad and Guy bandage from the base of the toes to mid thigh were then applied. Patient was then transferred from the operating room to the recovery room in satisfactory condition having tolerated procedure well. Counts are correct. Specimens: None. Estimated blood loss: 200 mL Tessa Eugene MD (Charles) Aug 06, 2017 12:28
[2017-08-06] MEDS ORDERED: DO NOT ADM ANY ANTICOAGULANT DRUGS PRN (12:30)
--- NOTE | 2017-08-06 12:32 | HHI.PR ---
Immediate Post Op Note Procedure Date: Aug 06, 2017 Pre Op Diagnosis: (1) Primary osteoarthritis of right knee (2) Fibrous ankylosis Fibrous ankylosis, left knee Post Op Diagnosis: (1) Primary osteoarthritis of right knee (2) Fibrous ankylosis Fibrous ankylosis, left knee Surgeon: Wiliam Eugene M.D. Refrigeration Systems Installer(s): Kwaku Ortega Procedure: Left total knee arthroplasty with [place] Triathlon prosthesis (uncemented) Closed manipulation, left knee. Findings: The right knee had significant osteoarthritis throughout the knee. The left knee had limitation of motion to 0-90 preoperatively and 0-120 postoperatively. Specimen(s) removed: None Estimated blood loss: 200 mL Anesthesia: Regional Block (adductor canal), Spinal, Local (bupivacaine liposomal) Drains: Hemovac (2) Tourniquet time (min at mmHg) 0 Patient to: PACU Patient Condition: Good Implant/Devices: SEE IMPLANT LOG (if applicable) Date/Time of Procedure: SEE SURGICAL CARE RECORD Tessa Eugene MD (Charles) Aug 06, 2017 12:32
[2017-08-06] MEDS ORDERED: HYDR-3580 PO (12:33)
[2017-08-06] MEDS: KETOROLAC TROMETHAMINE 30 MG/ML (IVP) VIAL IVP SCH ×3 (13:00→23:40)
--- NOTE | 2017-08-06 13:58 | RADRPT ---
EXAM DATE/TIME: 08/06/2017 12:57 [facility] COMPARISON: No previous studies available for comparison. INDICATIONS : Post op, right knee replacement. MEDICAL HISTORY : None. SURGICAL HISTORY : None. ENCOUNTER: Initial ACUITY: 1 day PAIN SCORE: 0/10 LOCATION: Right knee FINDINGS: AP and lateral views of the knee following arthroplasty reveals a prosthesis in anatomic alignment. F racture is not appreciated. Surgical drain is evident CONCLUSION: Status post total knee arthroplasty. Chaim Kohler MD FACR on August 06, 2017 at 13:56 Board Certified Radiologist. This report was verified electronically.
[2017-08-06] MEDS ORDERED: *morphine SULFATE 8 MG/ML PERIprocedure ONLY ONE (15:20)
[2017-08-06] MEDS ORDERED: *PROMETHAZINE 25 MG/ML VIAL PERIprocedural use ONLY ONE (15:24)
--- NOTE | 2017-08-06 15:41 | PD.CONS ---
[facility] Consult Requested By Dr. Eugene Reason for Consult medical management- history of HTN, DM type 2 Primary Care Physician Olamide Luna MD Diagnoses: History of Present Illness Patient is a very pleasant 66 years old male admitted today and underwent right TKA. Increasing pain and difficulty in ambulation prompted this procedure. patient with chronic medical conditions- including DM type2- with good hypoglycemic awreness, hypertension, BPH. Hyperlipidemia, CKI. Now seen in PACU awake and alert, comfortable Review of Systems Constitutional: DENIES: Diaphoretic episodes, Fatigue, Fever, Weight gain, Weight loss, Chills, Dizziness, Change in appetite, Night Sweats Endocrine: DENIES: Heat/cold intolerance, Polydipsia, Polyuria, Polyphagia Eyes: DENIES: Blurred vision, Diplopia, Eye inflammation, Eye pain, Vision loss , Photosensitivity, Double Vision Ears, nose, mouth, throat: DENIES: Tinnitus, Hearing loss, Vertigo, Nasal discharge, Oral lesions, Throat pain, Hoarseness, Ear Pain, Running Nose, Epistaxis, Sinus Pain, Toothache, Odynophagia Respiratory: DENIES: Apneas, Cough, Snoring, Wheezing, Hemoptysis, Sputum production, Shortness of breath Cardiovascular: DENIES: Chest pain, Palpitations, Syncope, Dyspnea on Exertion , PND, Lower Extremity Edema, Orthopnea, Claudication Gastrointestinal: DENIES: Abdominal pain, Black stools, Bloody stools, Constipation, Diarrhea, Nausea, Vomiting, Difficulty Swallowing, Anorexia Musculoskeletal: COMPLAINS OF: Joint pain (HPI) Integumentary: DENIES: Abnormal pigmentation, Nail changes, Pruritus, Rash Hematologic/lymphatic: DENIES: Bruising, Lymphadenopathy Immunologic/allergic: DENIES: Eczema, Urticaria Neurologic: DENIES: Abnormal gait, Headache, Localized weakness, Paresthesias, Seizures, Speech Problems, Tremor, Poor Balance Psychiatric: DENIES: Anxiety, Confusion, Mood changes, Depression, Hallucinations, Agitation, Suicidal Ideation, Homicidal Ideation, Delusions Past Family Social History Allergies: Coded Allergies: ondansetron (Unverified Allergy, Severe, Hives, 07/13/17) ciprofloxacin (Unverified Allergy, Intermediate, Nausea/Vomiting, 07/13/17 ) Past Medical History HYpertension Hyperlipidemia CKD stage 3 DM type 2 Past Surgical History no major surgeries Reported Medications Tamsulosin Zocor, Lisinopril, KCL tabs. Ranitidine, Protonix, oral hypoglycemics Active Ordered Medications see EMR Family History non contributory Social History quit smoking in 1970 very occasional alcohol use Physical Exam Vital Signs Vital Signs Date Time Temp Pulse Resp B/P (MAP) Pulse Ox O2 Delivery O2 Flow Rate FiO2 08/06/17 12:32 97.8 104 20 149/80 (103) 94 Nasal Cannula 2 08/06/17 08:27 98.3 90 18 148/86 (106) 99 Physical Exam GENERAL: well-developed patient, in no apparent distress. SKIN: No rashes, ecchymoses or lesions. Cool and dry. HEAD: Atraumatic. Normocephalic. No temporal or scalp tenderness. EYES: Pupils equal round and reactive. Extraocular motions intact. No scleral icterus. No injection or drainage. ENT: Nose without bleeding, purulent drainage or septal hematoma. Throat without erythema, tonsillar hypertrophy or exudate. Uvula midline. Airway patent. NECK: Trachea midline. No JVD or lymphadenopathy. Supple, nontender, no meningeal signs. CARDIOVASCULAR: Regular rate and rhythm without murmurs, gallops, or rubs. RESPIRATORY: Clear to auscultation. Breath sounds equal bilaterally. No wheezes , rales, or rhonchi. GASTROINTESTINAL: Abdomen soft, non-tender, nondistended. No hepato-splenomegaly , or palpable masses. No guarding. MUSCULOSKELETAL: Right knee- post op dressing, hemovac in place, on CPM Imaging Last Impressions Knee X-Ray 08/06/17 0914 Signed Impressions: Service Date/Time: Sunday, August 06, 2017 12:57 - CONCLUSION: Status post total knee arthroplasty. Chaim Kohler MD FACR Assessment and Plan Assessment and Plan 66 year-old male admitted Status post right total knee arthroplasty for severe osteoarthritis of the right knee and closed manipulation of the left knee. Orthopedic service is following. When necessary pain meds History of hypertension. Continue on high lisinopril History of diabetes type 2 continue on home meds. states good hypoglycemic awareness. OP ff up with PCP - ff A1C History of chronic kidney insufficiency stage III. Creatinine stable The history of GERD. Continue on ranitidine Protonix. 10 history of hyperlipidemia continue Zocor. History of BPH. Continue on tamsulosin. DVT prophylaxis patient started a aspirin 81 mg twice a day Case management following for discharge planning possible home with home health care docs to doctor's choice David Ackerman MD Aug 06, 2017 15:41
[2017-08-06 17:01] VITALS: BP 143/74; PULSE 112; RESP 18; TEMP 96.2; O2SAT 92
[2017-08-06] MEDS: ACETAMINOPHEN/HYDROcodone 325 MG/7.5 MG TAB PO PRN ×2 (18:39→23:40)
[2017-08-06] MEDS: TAMSULOSIN HCL 0.4 MG CAP PO SCH (20:04)
[2017-08-06] MEDS: metFORMIN HCL 500 MG TAB PO SCH (20:04)
[2017-08-06] MEDS: MAGNESIUM HYDROXIDE SUSP 30 ML CUP PO PRN (20:04)
[2017-08-06] MEDS: FAMOTIDINE 20 MG TAB PO SCH (20:05)
[2017-08-06] MEDS ORDERED: DEXTROSE 50% IN WATER 50 ML VIAL(D50) IV PUSH PRN (20:45)
[2017-08-06] MEDS ORDERED: INSULIN HUMAN REGULAR 1,000 UNITS/10 ML VIAL IV PUSH ONE (20:45)
[2017-08-06] MEDS ORDERED: GLUCAGON 1 MG/ML VIAL OTHER PRN (20:45)
[2017-08-06] MEDS ORDERED: POTASSIUM CITRATE 1080 MG PO SCH (21:00)
[2017-08-06] MEDS ORDERED: LISINOPRIL 5 MG TAB PO SCH (21:00)
[2017-08-06] MEDS: INSULIN ASPART SUPPLEMENTAL SCALE SQ SCH (23:25)
[2017-08-07] VITALS: BP 120/69; PULSE 85; RESP 16; TEMP 97.4; O2SAT 97
[2017-08-07] MEDS: KETOROLAC TROMETHAMINE 30 MG/ML (IVP) VIAL IVP SCH ×2 (05:11→11:28)
[2017-08-07 06:00] VITALS: BP 114/65; PULSE 77; RESP 15; TEMP 96.3; O2SAT 96
--- NOTE | 2017-08-07 06:20 | PD.ORT.PN ---
Subjective Post Op Day #: 1 Subjective Remarks He is doing well. He has minimal complaints related to either knee. He is anxious to go home and start physical therapy for both knees. Range of Motion -5-70 on the right. Distance Walked 10 side steps with physical therapy. Objective Vitals Vital Signs Date Time Temp Pulse Resp B/P (MAP) Pulse Ox O2 Delivery O2 Flow Rate FiO2 08/07/17 00:00 97.4 85 16 120/69 (86) 97 08/06/17 17:01 96.2 112 18 143/74 (97) 92 08/06/17 17:00 97.6 109 20 138/78 (98) 96 Room Air 08/06/17 16:30 109 20 138/78 (98) 96 Room Air 08/06/17 15:30 93 20 142/80 (100) 98 Room Air 08/06/17 14:30 101 20 146/77 (100) 98 Room Air 08/06/17 13:30 92 20 145/82 (103) 95 Room Air 08/06/17 13:15 94 20 134/75 (94) 94 Room Air 08/06/17 13:00 94 20 143/78 (99) 95 Room Air 08/06/17 12:45 96 20 147/78 (101) 94 Room Air 08/06/17 12:32 97.8 104 20 149/80 (103) 94 Nasal Cannula 2 08/06/17 08:27 98.3 90 18 148/86 (106) 99 I/O 08/06/17 08/06/17 08/06/17 08/07/17 08/07/17 08/07/17 07:00 15:00 23:00 07:00 15:00 23:00 Intake Total 1400 ml 1100 ml Output Total 750 ml 1180 ml 80 ml Balance 650 ml -80 ml -80 ml Intake Oral 1100 ml IV Total 1400 ml Output Urine Total 600 ml 1000 ml Drainage Total 180 ml 80 ml Estimated Blood Loss 150 ml # Voids 1 1 Imaging Last 24 hours Impressions Knee X-Ray 08/06/17 0914 Signed Impressions: Service Date/Time: Sunday, August 06, 2017 12:57 - CONCLUSION: Status post total knee arthroplasty. Chaim Kohler MD FACR Objective Remarks He is resting comfortably, supine in bed, in the CPM. The neurovascular status is intact. The dressing is dry and intact. Assessment & Plan Ortho Post Op Day #: 1 Problem List: (1) Status post surgical manipulation of knee joint ICD Codes: Z98.890 - Other specified postprocedural states Plan: Continue PT. (2) Status post total right knee replacement ICD Codes: Z96.651 - Presence of right artificial knee joint Plan: Continue postop care and PT. Assessment and Plan Condition: Good. Orthopedically stable. DVT prophylaxis: TEDs, aspirin, sequentials. Discharge plans: Home with home health care. An appointment was scheduled through the office. Prescriptions: [place] 7.5/325. He is advised of the range of motion in each knee. Tessa Eugene MD ([place]) Aug 07, 2017 06:20
[2017-08-07 06:25] LABS: HEMATOCRIT 33.2 % (39.0-51.0); HEMOGLOBIN 10.9 GM/DL (13.0-17.0)
--- NOTE | 2017-08-07 06:53 | HHI.DS ---
Discharge Summary Admission Date Aug 06, 2017 at 07:35 Discharge Date: Aug 07, 2017 Admitting Diagnosis Primary osteoarthritis, right knee. Fibrous ankylosis, left knee. Diagnosis: (1) Status post surgical manipulation of knee joint ICD Codes: Z98.890 - Other specified postprocedural states (2) Status post total right knee replacement ICD Codes: Z96.651 - Presence of right artificial knee joint (3) Fibrous ankylosis ICD Codes: M24.60 - Ankylosis, unspecified joint Procedures Right total knee arthroplasty with Christine Triathlon prosthesis (uncemented), 08/06/2017 Closed manipulation, left knee, 08/06/2017 Brief History This is a 66 year old male patient has had long-standing right knee pain nonresponsive to conservative measures including anti-inflammatory agents and analgesics and physical therapy and exercise. Addition, he had a left total knee in the past and has had physical therapy but has limited motion due to fibrous ankylosis. Physical findings showed crepitation, medial and lateral laxity, tenderness on motion in the right knee. Range of motion of the left knee was limited. X-rays right knee showed loss of articular cartilage to expose subchondral bone with osteophytes and eburnation. CBC/BMP: 08/07/17 0402 Significant Findings Laboratory Tests Test 08/07/17 04:02 Hemoglobin 10.9 GM/DL (13.0-17.0) Hematocrit 33.2 % (39.0-51.0) Imaging Last 72 hours Impressions Knee X-Ray 08/06/17 0914 Signed Impressions: Service Date/Time: Sunday, August 06, 2017 12:57 - CONCLUSION: Status post total knee arthroplasty. Chaim Kohler MD FACR PE at Discharge He is resting comfortably, supine in bed, in the [facility]. The neurovascular status is intact. The dressing is dry and intact. Hospital Course The patient was admitted on 08/06/2017. He had the operative procedure was carried out. He received prophylactic antibiotics Ancef according to protocol preoperatively and postoperatively. He received tranexamic acid preoperatively and postoperatively also according to protocol. In recovery, he had initiation of DVT prophylaxis with NICOLA stockings and sequentials. On postoperative day 1, he will start aspirin. He started on physical therapy for the knees postoperatively. He will continue the therapy during her first postoperative day and will be discharged at the end of the day. Discharge plans are for home health care which has been arranged. His range of motion operating room was 0 extension to 140 on the right and 0 extension to 120 of flexion on the left. Pt Condition on Discharge: Good Discharge Disposition: Disch w/ Home Health Serv Discharge Instructions Diet Instructions: As Tolerated, No Restrictions Activities You Can Perform: Full Weight Bearing, Shower Only-No Bath Activities to Avoid: Lifting/Bending, Strenuous Activity, Bathing, Driving Follow up Referrals: Orthopedics with Tessa Eugene MD ([place]) New Medications: Aspirin DR (Aspirin DR) 81 Mg Tabdr 81 MG PO BID for Prevent Blood Clot for 30 Days, #60 TAB Continued Medications: Acetaminophen (Tylenol) 325 Mg Tab 325 MG PO Q4H PRN for PAIN SCALE 1 TO 10, TAB 0 Refills Empagliflozin-Linagliptin (Glyxambi) 25-5 Mg Tab 1 TAB PO DAILY for Blood Sugar Management, #30 TAB 0 Refills Febuxostat (Uloric) 40 Mg Tab 1 MG PO DAILY Glyburide (Glyburide) 5 Mg Tab 5 MG PO DIRECTED PRN for AT SUPPER AND BEDTIME IF BS EL, #60 TAB 0 Refills IF BS ELEVATED TAKES DOSE AT SUPPER AND BEDTIME Hydrocodone-Acetaminophen (Hydrocodone-Acetaminophen) 7.5-325 mg Tab 1 TAB PO Q4H PRN for PAIN SCALE 1 TO 10, #50 TAB (This prescription has been renewed) Lisinopril (Lisinopril) 2.5 Mg Tab 2.5 MG PO HS, #30 TAB 0 Refills Metformin (Metformin) 500 Mg Tab 500 MG PO BID for Blood Sugar Management, #60 TAB 0 Refills With meals Pantoprazole (Pantoprazole) 20 Mg Tab 20 MG PO DAILY for Reflux, #30 TAB 0 Refills Potassium Citrate ER (Potassium Citrate ER) 1,080 Mg Tab 2 TAB PO BID Promethazine (Phenergan) 25 Mg Tablet 25 MG PO Q6H PRN for NAUSEA OR VOMITING, TAB 0 Refills Ranitidine (Ranitidine) 150 Mg Cap 150 MG PO DAILY AT SUPPER, #30 CAP 0 Refills Simvastatin (Zocor) 40 Mg Tab 40 MG PO DAILY for Cholesterol Management, #30 TAB 0 Refills Tamsulosin (Tamsulosin) 0.4 Mg Cap 0.4 MG PO BID for Manage Prostate Problems, #30 CAP 0 Refills Tramadol (Tramadol) 50 Mg Tab 50 MG PO Q4H PRN for PAIN, TAB 0 Refills Tessa Eugene MD ([place]) Aug 07, 2017 06:53
[2017-08-07 08:00] VITALS: BP 122/62; PULSE 82; RESP 18; TEMP 96.9; O2SAT 95
[2017-08-07] MEDS: INSULIN ASPART SUPPLEMENTAL SCALE SQ SCH ×2 (08:00→11:28)
[2017-08-07] MEDS: metFORMIN HCL 500 MG TAB PO SCH (08:56)
[2017-08-07] MEDS: TAMSULOSIN HCL 0.4 MG CAP PO SCH (08:56)
[2017-08-07] MEDS: FAMOTIDINE 20 MG TAB PO SCH (08:56)
[2017-08-07] MEDS ORDERED: PRAVASTATIN SOD 80 MG TAB PO SCH (09:00)
[2017-08-07] MEDS ORDERED: PANTOPRAZOLE SOD 20 MG DELAYED RELEASE TAB PO SCH (09:00)
[2017-08-07] MEDS ORDERED: LINAGLIPTIN PO SCH (09:00)
[2017-08-07] MEDS ORDERED: ULORIC 40 MG PO SCH (09:00)
[2017-08-07] MEDS ORDERED: EMPAGLIFLOZIN PO SCH (09:00)
[2017-08-07] MEDS: MAGNESIUM HYDROXIDE SUSP 30 ML CUP PO PRN (09:03)
[2017-08-07] MEDS ORDERED: INFLUENZA VIRUS VACCINE (QUADRIVALENT) 0.5 ML SYR IM ONE (10:00)
[2017-08-07] MEDS: ACETAMINOPHEN/HYDROcodone 325 MG/7.5 MG TAB PO PRN (10:07)
[2017-08-07] MEDS: LACTATED RINGER'S 1000 ML INJ 1,000 ML IV SCH (11:00)
[2017-08-07] MEDS ORDERED: ASPIRIN EC 81 MG TABEC PO SCH (11:30)
[2017-08-07 12:45] VITALS: RESP 18
[2017-08-07] MEDS ORDERED: DOCUSATE SODIUM 100 MG CAP PO SCH (21:00)
== END 2017-08-07 13:57 | disposition home health service (06) | DRG 470 ==
LOC: HSDI 07:35 → N06B 17:37
PROVIDERS: ADMIT Orthopaedic Surgery; ATTEND Orthopaedic Surgery
PROC: 3E0T3BZ Introduction of Anesthetic Agent into Peripheral Nerves and Plexi, Percutaneous Approach (ICD-10-PCS; 2017-08-06)
PROC: 0SRC0JA Replacement of Right Knee Joint with Synthetic Substitute, Uncemented, Open Approach (ICD-10-PCS; principal; 2017-08-06 09:46)
PROC: 0SSDXZZ Reposition Left Knee Joint, External Approach (ICD-10-PCS; 2017-08-06 09:46)
DX: M17.11 Unilateral primary osteoarthritis, right knee (principal); E11.22 Type 2 diabetes mellitus with diabetic chronic kidney disease; N18.3 Chronic kidney disease, stage 3 (moderate); T84.82XA Fibrosis due to internal orthopedic prosthetic devices, implants and grafts, initial encounter; M24.662 Ankylosis, left knee; M21.061 Valgus deformity, not elsewhere classified, right knee; N40.0 Benign prostatic hyperplasia without lower urinary tract symptoms; I12.9 Hypertensive chronic kidney disease with stage 1 through stage 4 chronic kidney disease, or unspecified chronic kidney disease; E78.5 Hyperlipidemia, unspecified; K21.9 Gastro-esophageal reflux disease without esophagitis; Z23 Encounter for immunization; Z79.84 Long term (current) use of oral hypoglycemic drugs; Z96.652 Presence of left artificial knee joint; Z87.891 Personal history of nicotine dependence; Z87.442 Personal history of urinary calculi
CPT/HCPCS: 73560; 82948; 85014; 85018; 86850; 86900; 86901; 90686; 94150; C1776; C9290; J0131; J0690; J1100; J1580; J1815; J1885; J2250; J2270; J2370; J2550; J3010; J7120; Q2038